=== PATIENT | female | born 1955 | race Caucasian/White ===

== ENCOUNTER 2019-03-22 09:13 | Emergency (ER) | payer OTHER | END 2019-03-22 10:30 | disposition home or self-care (01) | LOC: FTE 10:30 | DX: B02.9 Zoster without complications (principal); I10 Essential (primary) hypertension | CPT/HCPCS: 99283; Z7502 ==

== ENCOUNTER 2019-05-15 09:07 | Emergency (ER) | payer OTHER ==
[2019-05-15 10:17] LABS: ADD MAN DIFF? NO
[2019-05-15 10:26] LABS: WHITE BLOOD COUNT 7.7 10^3/ul (4.8-10.8)
[2019-05-15 10:26] LABS: BASOPHIL # 0.1 10^3/ul (0.0-0.1); BASOPHILS % 1.3 % (0.0-2.0); EOSINOPHILS # 0.2 10^3/ul (0.0-0.5); EOSINOPHILS % 2.7 % (0.0-7.0); HEMATOCRIT 42.3 % (37.0-47.0); HEMOGLOBIN 14.1 g/dl (12.0-16.0); LYMPHOCYTES # 1.9 10^3/ul (0.8-2.9); LYMPHOCYTES % 24.2 % (15.0-51.0); MEAN CORPUSCULAR HEMOGLOBIN 31.4 pg (29.0-33.0); MEAN CORPUSCULAR HGB CONC 33.3 g/dl (32.0-37.0); MEAN CORPUSCULAR VOLUME 94.2 fl (82.0-101.0); MEAN PLATELET VOLUME 11.6 fl (7.4-10.4); MONOCYTE # 0.5 10^3/ul (0.3-0.9); NEUTROPHILS % 64.4 % (39.0-77.0); PLATELET COUNT 328 10^3/UL (140-415); RED BLOOD COUNT 4.49 10^6/ul (4.20-5.40); RED CELL DISTRIBUTION WIDTH 13.2 % (11.5-14.5)
[2019-05-15 10:47] LABS: INR 0.99; PROTIME 13.2 Sec (11.9-14.9)
[2019-05-15 10:48] LABS: PARTIAL THROMBOPLASTIN TIME 32.7 Sec (23.0-35.0)
[2019-05-15 10:52] LABS: ALANINE AMINOTRANSFERASE 14 IU/L (13-69); ALBUMIN 4.1 g/dl (3.3-4.9); ALBUMIN/GLOBULIN RATIO 1.24; ALKALINE PHOSPHATASE 105 IU/L (42-121); ANION GAP 8 (5-13); ASPARTATE AMINO TRANSFERASE 24 IU/L (15-46); BILIRUBIN,INDIRECT 0.8 mg/dl (0-1.1); BILIRUBIN,TOTAL 0.8 mg/dl (0.2-1.3); BLOOD UREA NITROGEN 15 mg/dl (7-20); CALCIUM 9.4 mg/dl (8.4-10.2); CARBON DIOXIDE 22 mmol/L (21-31); CHLORIDE 111 mmol/L (97-110); CREATINE KINASE 35 IU/L (23-200); CREATININE 0.56 mg/dl (0.44-1.00); Estimated GFR > 60 mL/min (>60); GLUCOSE 98 mg/dl (70-220); POTASSIUM 3.7 mmol/L (3.5-5.1); SODIUM 141 mmol/L (135-144); TOTAL PROTEIN 7.4 g/dl (6.1-8.1)
[2019-05-15 11:03] LABS: B-TYPE NATRIURETIC PEPTIDE 60 PG/ML (0-125); CK INDEX 0.9; TROPONIN-I < 0.012 ng/ml (0.000-0.120)
[2019-05-15] MEDS: FUROSEMIDE 20 MG TAB PO (11:30)
== END 2019-05-15 12:39 | disposition home or self-care (01) ==
LOC: E/R 09:07
DX: R60.0 Localized edema (principal); I10 Essential (primary) hypertension
CPT/HCPCS: 71045; 80053; 82550; 82553; 83880; 84484; 85025; 85610; 85730; 93005; 93970; 99285-25

== ENCOUNTER 2019-07-13 20:32 | Observation (INO) | payer OTHER ==
[2019-07-13 21:19] LABS: ADD MAN DIFF? NO
[2019-07-13 21:24] LABS: WHITE BLOOD COUNT 10.1 10^3/ul (4.8-10.8)
[2019-07-13 21:24] LABS: BASOPHIL # 0.1 10^3/ul (0.0-0.1); BASOPHILS % 0.9 % (0.0-2.0); EOSINOPHILS # 0.2 10^3/ul (0.0-0.5); EOSINOPHILS % 1.5 % (0.0-7.0); HEMATOCRIT 41.5 % (37.0-47.0); HEMOGLOBIN 13.7 g/dl (12.0-16.0); LYMPHOCYTES # 2.2 10^3/ul (0.8-2.9); LYMPHOCYTES % 22.2 % (15.0-51.0); MEAN CORPUSCULAR HEMOGLOBIN 31.3 pg (29.0-33.0); MEAN CORPUSCULAR VOLUME 94.7 fl (82.0-101.0); MEAN PLATELET VOLUME 11.1 fl (7.4-10.4); MONOCYTE # 0.6 10^3/ul (0.3-0.9); MONOCYTES % 6.2 % (0.0-11.0); NEUTROPHIL # 6.9 10^3/ul (1.6-7.5); NEUTROPHILS % 68.8 % (39.0-77.0); PLATELET COUNT 335 10^3/UL (140-415); RED BLOOD COUNT 4.38 10^6/ul (4.20-5.40); RED CELL DISTRIBUTION WIDTH 12.6 % (11.5-14.5)
[2019-07-13 21:35] LABS: ADD UMIC YES; UR ASCORBIC ACID 20 mg/dL (NEGATIVE); UR BACTERIA FEW /HPF (NONE SEEN); UR BILIRUBIN (Dip) NEGATIVE (NEGATIVE); UR BLOOD (Dip) 2+ mg/dL (NEGATIVE); UR CLARITY SLIGHTLY CLOUDY (CLEAR); UR COLOR YELLOW (YELLOW); UR GLUCOSE (Dip) NEGATIVE (NEGATIVE); UR KETONES (Dip) NEGATIVE (NEGATIVE); UR LEUKOCYTE ESTERASE (Dip) 1+ Leu/ul (NEGATIVE); UR MUCUS FEW /HPF (NONE SEEN); UR NITRITE (Dip) NEGATIVE (NEGATIVE); UR RBC 12 /HPF (0-5); UR SPECIFIC GRAVITY (Dip) 1.016 (1.003-1.030); UR SQUAMOUS EPITHELIAL CELL FEW /HPF (FEW); UR TOTAL PROTEIN (Dip) NEGATIVE (NEGATIVE); UR UROBILINOGEN (Dip) NEGATIVE (NEGATIVE); UR WBC 17 /HPF (0-5)
[2019-07-13 21:39] LABS: ALANINE AMINOTRANSFERASE 8 IU/L (13-69); ALBUMIN 4.3 g/dl (3.3-4.9); ALBUMIN/GLOBULIN RATIO 1.34; ALKALINE PHOSPHATASE 91 IU/L (42-121); ANION GAP 6 (5-13); ASPARTATE AMINO TRANSFERASE 22 IU/L (15-46); BILIRUBIN,INDIRECT 0.2 mg/dl (0-1.1); BILIRUBIN,TOTAL 0.2 mg/dl (0.2-1.3); BLOOD UREA NITROGEN 18 mg/dl (7-20); CALCIUM 9.6 mg/dl (8.4-10.2); CARBON DIOXIDE 24 mmol/L (21-31); CHLORIDE 109 mmol/L (97-110); Estimated GFR 56 mL/min (>60); GLUCOSE 102 mg/dl (70-220); SODIUM 139 mmol/L (135-144); TOTAL PROTEIN 7.5 g/dl (6.1-8.1)
[2019-07-13 21:41] LABS: ACETAMINOPHEN < 10.0 ug/ml (10.0-30.0); ETHANOL < 10.0 mg/dl (0-0); SALICYLATE < 1.0 mg/dl (5.0-30.0)
[2019-07-13] MEDS: CEFEPIME 2GM/50 ML (PMX) 50 ML IVPB (21:42)
[2019-07-13] MEDS: METOCLOPRAMIDE 10 MG INJ IV (21:43)
[2019-07-13] MEDS: SODIUM CHLORIDE 0.9% 1L BAG IV* (21:43)
[2019-07-13 21:45] LABS: AMPHETAMINE/METHAMPHETAMINE Negative (NEGATIVE); BARBITURATES Negative (NEGATIVE); BENZODIAZEPINES Negative (NEGATIVE); CANNABINOIDS Negative (NEGATIVE); COCAINE Negative (NEGATIVE); OPIATES Negative (NEGATIVE)
[2019-07-13 21:52] LABS: TROPONIN-I < 0.012 ng/ml (0.000-0.120)
[2019-07-13] MEDS ORDERED: ONDANSETRON 4 MG INJ IV ×2 (22:30→23:00)
[2019-07-13] MEDS ORDERED: ACETAMINOPHEN 325 MG TAB PO ×2 (22:30→23:00)
[2019-07-13] MEDS: DEXTROSE 5%-0.45% NACL 1,000 ML IV (23:00)
[2019-07-13 23:30] LABS: AMMONIA 16 umol/l (9-30); LACTIC ACID 0.8 mmol/L (0.5-2.0)
[2019-07-14 02:55] LABS: LACTIC ACID 0.9 mmol/L (0.5-2.0)
[2019-07-14] MEDS: PANTOPRAZOLE (EC) 40 MG TAB PO (06:33)
[2019-07-14] MEDS: DEXTROSE 5%-0.45% NACL 1,000 ML IV (08:41)
[2019-07-14] MEDS: CEFTRIAXONE 1 GM/50 ML (PMX) 50 ML IVPB (08:41)
[2019-07-14] MEDS: AMLODIPINE 10 MG TAB PO (08:42)
== END 2019-07-14 12:52 | disposition home or self-care (01) ==
LOC: TEL 22:40 → E/R 20:32
DX: N39.0 Urinary tract infection, site not specified (principal); I10 Essential (primary) hypertension; E66.9 Obesity, unspecified; Z68.25 Body mass index [BMI] 25.0-25.9, adult
CPT/HCPCS: 36415; 70450; 71045; 74176; 80053; 80307; 81001; 82140; 82962; 83605; 84443; 84484; 85025; 87086; 93005; 96374; 96375; 99285-25; G0378